=== PATIENT | female | born 1995 | race Caucasian/White ===

== ENCOUNTER 2023-08-23 21:08 | Inpatient (IN) | payer BC ==
[2023-08-23 21:34] VITALS: BMI 33.3
[2023-08-23 21:58] LABS: Fetal Membranes Rupture RUPTURE DETECTED (No Rupture)
[2023-08-23] MEDS: Lactated Ringer's 1,000 ML IV SCH (22:11)
[2023-08-23] MEDS ORDERED: HYDROcodone/Acetaminophen 5/325 mg Tablet PO PRN ×2 (22:23)
[2023-08-23] MEDS ORDERED: Promethazine HCl 25 MG/ML VIAL IM PRN ×2 (22:23→22:58)
[2023-08-23] MEDS ORDERED: Diphenoxylate HCl/Atropine Tablet PO PRN ×2 (22:23)
[2023-08-23] MEDS ORDERED: Ondansetron PF 4 MG/2 ML Vial IVP PRN ×2 (22:23→22:58)
[2023-08-23] MEDS ORDERED: Methylergonovine 0.2 MG/ML VIAL IM PRN (22:23)
[2023-08-23] MEDS ORDERED: fentaNYL 50 mcg/mL 1 mL Vial SLOW IVP PRN (22:23)
[2023-08-23] MEDS ORDERED: Misoprostol 200 MCG TAB PR PRN (22:23)
[2023-08-23] MEDS ORDERED: Carboprost 250 MCG/ML AMP IM PRN (22:23)
[2023-08-23] MEDS ORDERED: Tranexamic Acid 1,000 MG/10 ML VIAL IVP PRN (22:23)
[2023-08-23] MEDS ORDERED: hydrALAZINE 20 MG/ML VIAL SLOW IVP PRN (22:23)
[2023-08-23] MEDS ORDERED: Acetaminophen 500 MG TAB PO PRN (22:23)
[2023-08-23] MEDS ORDERED: Lidocaine 1% (PF) 30 ML VIAL SC PRN (22:23)
[2023-08-23] MEDS ORDERED: Oxytocin 30 units/NS 500 ML 500 ML IV SCH (22:30)
[2023-08-23 22:39] LABS: Hematocrit 32.8 % (34.9-44.5); Hemoglobin 11.5 g/dL (12.0-15.5); Mean Corpuscular HGB CONC 35.1 g/dL (32.0-36.0); Mean Corpuscular Volume 82.6 fl (81.6-98.3); Mean Platelet Volume 10.8 fl (7.4-10.4); Platelet Count 142 10x3/uL (150-450); Red Blood Cell (RBC) Count 3.97 10x6/uL (3.90-5.03); White Blood Cell (WBC) Count 15.1 10x3/uL (3.5-10.5)
[2023-08-23] MEDS: fentaNYL/Ropivacaine Epidural 100 ML ONE (22:52)
[2023-08-23] MEDS ORDERED: diphenhydrAMINE 50 MG/ML VIAL IVP PRN (22:58)
[2023-08-23] MEDS ORDERED: ePHEDrine Sulfate 50 MG/10 ML VIAL SLOW IVP PRN (22:58)
[2023-08-23] MEDS ORDERED: Acetaminophen 325 MG TAB PO PRN (22:58)
[2023-08-23] MEDS ORDERED: Moisturizing Cream (Eucerin) 113 GM JAR TOP PRN (22:58)
[2023-08-23] MEDS ORDERED: Naloxone HCl 0.4 mg/ml Vial IVP PRN ×2 (22:58)
[2023-08-23] MEDS ORDERED: Lactated Ringer's 500 ML IV PRN (22:58)
[2023-08-23] MEDS ORDERED: Communication Order-Pharmacy FS SCH (23:00)
[2023-08-23 23:01] LABS: HBSAg Index 0.33 S/CO (0-0.99); Hep B Surf Ag - L&D Non-Reactive S/CO (NonReactive)
[2023-08-23 23:02] LABS: Syphilis Antibody Nonreactive (Nonreactive); Syphilis Antibody Index 0.07 S/CO (<1.00 Non-Reactive)
[2023-08-24] MEDS: Oxytocin 30 units/NS 500 ML 500 ML IV SCH (08:05)
[2023-08-24] MEDS ORDERED: Lidocaine 1% (PF) 30 ML VIAL SC PRN ×2 (08:42→08:44)
[2023-08-24] MEDS ORDERED: Oxytocin 30 units/NS 500 ML 500 ML IV SCH (08:45)
[2023-08-24] MEDS: fentaNYL 2 mcg/Ropivacaine 0.2% Epidural 100 ML CADD EPIDURAL SCH (09:21)
[2023-08-24] MEDS ORDERED: Bisacodyl 10 MG SUPP PR PRN (13:27)
[2023-08-24] MEDS ORDERED: Milk Of Magnesia 30 ML UDCUP PO PRN (13:27)
[2023-08-24] MEDS ORDERED: diphenhydrAMINE 25 MG CAP PO PRN (13:27)
[2023-08-24 13:28] LABS: Analyzer IN Cardio CS NICU
[2023-08-24] MEDS: Ibuprofen 800 MG TAB PO PRN (15:57)
[2023-08-24] MEDS: Dexmedetomidine 200 MCG/2 ML VIAL ONE (17:59)
[2023-08-24] MEDS: Ibuprofen 800 MG TAB PO SCH (18:00)
[2023-08-24] MEDS: Ferrous Sulfate 325 MG TAB PO SCH (18:00)
[2023-08-24] MEDS: HYDROcodone/Acetaminophen 5/325 mg Tablet PO PRN (21:30)
[2023-08-24] MEDS: Docusate 100 MG CAP PO SCH (21:30)
[2023-08-24] MEDS: Guaifenesin DM 100-10/5 ML UDCUP PO PRN (23:56)
[2023-08-25] MEDS ORDERED: Bupivacaine 0.25% HCL 30 ML VIAL ONE (09:00)
[2023-08-25] MEDS ORDERED: Benzocaine-Menthol 82.5 ML CAN TOP PRN (09:43)
[2023-08-25] MEDS: Prenatal Vitamin 1 TAB PO SCH (10:00)
[2023-08-25] MEDS: Boostrix 0.5 ML (Tdap) VIAL (>/=7 yrs of age) IM ONE (16:35)
[2023-08-26 07:42] VITALS: BP 129/78; TEMP 98
== END 2023-08-26 11:25 | disposition home or self-care (01) | DRG 807 ==
LOC: CSHLD/OP 21:08 → CSHLD 22:02 → CSHPP 08-24 16:20
PROVIDERS: ADMIT Obstetrics & Gynecology; ATTEND Obstetrics & Gynecology
PROC: 10D07Z3 Extraction of Products of Conception, Low Forceps, Via Natural or Artificial Opening (ICD-10-PCS; principal; 2023-08-24)
PROC: 0KQM0ZZ Repair Perineum Muscle, Open Approach (ICD-10-PCS; 2023-08-24)
DX: O48.0 Post-term pregnancy (principal); Z37.0 Single live birth; Z3A.40 40 weeks gestation of pregnancy; Z91.040 Latex allergy status; O76 Abnormality in fetal heart rate and rhythm complicating labor and delivery; O70.1 Second degree perineal laceration during delivery; O69.81X0 Labor and delivery complicated by cord around neck, without compression, not applicable or unspecified
CPT/HCPCS: 51702; 82805; 84112; 85027; 86780; 86850; 86900; 86901; 87340; 99285; J0665; J2590; J7120